=== PATIENT | female | born 1990 | race Hispanic/Latino ===

== ENCOUNTER 2016-06-09 09:56 | Emergency (ER) | payer MEDICAID ==
[2016-06-09 10:50] LABS: Basophils % (Auto) 0.7 % (0.0-1.8); Eosinophils % (Auto) 2.4 % (0.0-4.3); Hematocrit 40.6 % (30.3-42.9); Hemoglobin 13.1 gm/dl (10.1-14.3); Mean Corpuscular HGB Conc 32 % (30-34); Mean Corpuscular Hemoglobin 28 pg (28-32); Mean Corpuscular Volume 86 fl (79-97); Platelet Count 199 K/mm3 (140-440); Red Blood Count 4.74 M/mm3 (3.65-5.03); Red Cell Distribution Width 13.9 % (13.2-15.2); White Blood Count 4.8 K/mm3 (4.5-11.0)
[2016-06-09 11:10] LABS: Alanine Aminotransferase 15 units/L (7-56); Albumin 4.1 g/dL (3.9-5); Albumin/Globulin Ratio 1.2 %; Alkaline Phosphatase 94 units/L (35-129); Anion Gap 18 mmol/L; BUN/Creatinine Ratio 14.28; Bilirubin,Total 0.5 mg/dL (0.1-1.2); Blood Urea Nitrogen 10 mg/dL (7-17); Calcium 8.5 mg/dL (8.4-10.2); Carbon Dioxide 24 mmol/L (22-30); Chloride 102.3 mmol/L (98-107); Glucose 92 mg/dL (65-100); Lipase 24 units/L (13-60); Potassium 4.6 mmol/L (3.6-5.0); Sodium 140 mmol/L (137-145); Total Protein 7.5 g/dL (6.3-8.2)
[2016-06-09 11:34] LABS: Bilirubin,Urine NEG (Negative); Blood,Urine SM (Negative); Ketones,Urine NEG (Negative); Leukocyte Esterase,Urine NEG (Negative); Mucus,Urine FEW /HPF; Nitrite,Urine NEG (Negative); Protein,Urine <15 mg/dL mg/dL (Negative); Urobilinogen,Urine < 2.0 mg/dL (<2.0); WBC,Urine < 1.0 /HPF (0.0-6.0)
[2016-06-09] MEDS ORDERED: TORADOL IM ONE (11:44)
[2016-06-09] MEDS ORDERED: ZOFRAN ODT PO ONE (11:44)
[2016-06-09 12:58] VITALS: BP 100/60
--- NOTE | 2016-06-09 13:14 | Emergency Department Report ---
HPI - General Chief Complaint: Abdominal Pain Time Seen by Provider: 06/09/16 11:12 - HPI HPI: The patient is a 26-year-old female with a history of biliary colic, who presents for evaluation of abdominal pain. The patient reports right upper quadrant abdominal pain since 7 AM this morning, 8/10 in severity, stabbing in quality, radiating to the back, and is exacerbated with eating. She also reports some associated mild nausea. The patient denies fever, chills, night sweats, chest pain, dyspnea, vomiting, diarrhea, blood in the stool, dark tarry stool, dysuria, hematuria, flank pain, genital discharge, inability to pass flatus. ED Past Medical Hx - Past Medical History Hx Hypertension: No Hx Congestive Heart Failure: No Hx Diabetes: No Hx Deep Vein Thrombosis: No Hx GERD: Yes Hx Renal Disease: No Hx Sickle Cell Disease: No Hx Seizures: No Hx Asthma: Yes (albuterol PRN) Hx COPD: No Hx HIV: No Additional medical history: DEVIATED SEPTUM. GALL STONES - Surgical History Past Surgical History?: No - Social History Smoking Status: Never Smoker Substance Use Type: None - Medications Home Medications: Home Medications Medication Instructions Recorded Confirmed Last Taken Type Vit-Fe Fumar-FA [ 1 tab PO QDAY 01/12/15 01/15/15 Unknown History Vitamin] HYDROcodone/APAP 5-325 [[place] 1 each PO Q4HR PRN #20 tablet 01/16/15 Unknown Rx 5/325] Mag Hydrox/Al Hydrox/Simeth 770 ml PO TID 7 Days 04/13/15 Unknown Rx [Maalox Advanced Suspension] ALBUTEROL Inhaler [ProAir HFA 2 puff IH QID PRN #1 inha 05/04/15 Unknown Rx Inhaler] Amoxicillin/K Clav Tab [Augmentin 1 tab PO Q12HR #20 tab 05/04/15 Unknown Rx 875 mg] Cetirizine HCl [ZyrTEC] 10 mg PO DAILY #30 capsule 05/04/15 Unknown Rx Fluticasone [Flonase] 2 spray NS QDAY #1 bottle 05/04/15 Unknown Rx Promethazine /Codeine 5 ml PO Q6H PRN #150 ml 05/04/15 Unknown Rx [Phenergan/Codeine 6.25-10 mg/5 ml] predniSONE [Deltasone] 50 mg PO QDAY #5 tab 09/05/15 Unknown Rx HYDROcodone/APAP 5-325 [[place] 1 each PO Q6HR PRN #14 tablet 06/09/16 Unknown Rx 5/325] Ondansetron [Zofran TAB] 4 mg PO Q8HR PRN #14 tablet 06/09/16 Unknown Rx ED Review of Systems ROS: Stated complaint: GALL BLADDER PAIN Other details as noted in HPI Constitutional: denies: fever ENT: denies: throat or neck pain Respiratory: denies: cough, shortness of breath Cardiovascular: denies: chest pain Endocrine: denies unexplained weight loss or gain Gastrointestinal: reports abdominal pain, nausea Genitourinary: denies: dysuria Musculoskeletal: denies: leg swelling Skin: denies: rash Neurological: denies: headache Hematological/Lymphatic: denies: easy bleeding or easy bruising Psych: denies sadness or hopelessness Physical Exam - Physical Exam Vital Signs: Vital Signs 06/09/16 06/09/16 10:16 11:08 Temperature 98.1 F Pulse Rate 68 Respiratory 16 18 Rate Blood Pressure 116/79 O2 Sat by Pulse 100 98 Oximetry Physical Exam: General: well-nourished, well-developed, morbidly obese Head: Normocephalic, atraumatic Eyes: normal sclera ENT: Mucous membranes are pink and moist Neck: trachea midline, neck supple, No neck stiffness, no cervical adenopathy Respiratory: Breath sounds equal bilaterally, no wheezing, rales, or rhonchi Cardio: S1 and S2 present, no murmurs, rubs, gallops, capillary refill is brisk Abdomen: Normoactive bowel sounds, soft abdomen, RUQ and epigastric tenderness to palpation present, no rigidity, no guarding or rebound tenderness Chest WALL/Back: No tenderness to palpation of the chest wall, no CVA tenderness with percussion Musc: No pitting edema Skin: No rash Neuro: no facial drooping, normal speech Psych: Normal affect ED Course Vital Signs 06/09/16 06/09/16 10:16 11:08 Temperature 98.1 F Pulse Rate 68 Respiratory 16 18 Rate Blood Pressure 116/79 O2 Sat by Pulse 100 98 Oximetry ED Medical Decision Making - Lab Data Result diagrams: 06/09/16 10:38 06/09/16 10:38 - Medical Decision Making The patient was seen and examined by myself. The patient is placed on a shelter monitor and continuous pulse ox. On initial evaluation, the patient was found to be in no distress. Evaluation orders are placed. The patient is given IM dose of Toradol for pain, and Zofran for nausea. Lab results were non- concerning including WBC, hemoglobin, hematocrit, electrolytes, renal function, LFTs, lipase, and negative test. The patient was reevaluated and reported that their symptoms were markedly improved. The patient is stable for discharge with outpatient follow-up. The patient is given follow-up and return instructions. The patient expressed understanding and agreed with the plan. The patient is discharged in stable condition. Critical care attestation.: If time is entered above; I have spent that time in minutes in the direct care of this critically ill patient, excluding procedure time. ED Disposition Clinical Impression: Acute abdominal pain in right upper quadrant Disposition: DISCHARGED TO HOME OR SELFCARE Is pt being admited?: No Does the pt Need Aspirin: No Condition: Stable Instructions: Abdominal Pain (ED), Biliary Colic (ED), Acute Nausea and Vomiting (ED) Referrals: PRIMARY CARE, [Primary Care Provider] - 3-5 Days Time of Disposition: 12:57
== END 2016-06-09 13:14 | disposition home or self-care (01) ==
LOC: ED 09:56
DX: R10.11 Right upper quadrant pain (principal); K21.9 Gastro-esophageal reflux disease without esophagitis; J45.909 Unspecified asthma, uncomplicated
CPT/HCPCS: 36415; 80053; 81001; 83690; 84703; 85025; 96372; 99284; J1885; Q0162

== ENCOUNTER 2016-06-09 18:00 | Emergency (ER) | payer MEDICAID ==
--- NOTE | 2016-06-09 22:47 | Emergency Department Report ---
HPI - General Chief Complaint: Abdominal Pain Time Seen by Provider: 06/09/16 21:43 - HPI HPI: The patient is a 26-year-old female with a history of biliary colic, who presents for evaluation of abdominal pain. The patient was seen here earlier today by Dr. Hernandez for right upper quadrant abdominal pain. Lab results were non-concerning including WBC, hemoglobin, hematocrit, electrolytes, renal function, LFTs, lipase, and negative test therefore she was discharged with outpatient follow up. Now complaining of left upper quadrant pain post lunch and is requesting imaging of her abdomen. She denies any pain at this time. The patient denies fever, chills, night sweats, chest pain, dyspnea, vomiting, diarrhea, blood in the stool, dark tarry stool, dysuria, hematuria, flank pain, genital discharge, inability to pass flatus. ED Past Medical Hx - Past Medical History Previous Medical History?: Yes Hx Hypertension: No Hx Congestive Heart Failure: No Hx Diabetes: No Hx Deep Vein Thrombosis: No Hx GERD: Yes Hx Renal Disease: No Hx Sickle Cell Disease: No Hx Seizures: No Hx Asthma: Yes (albuterol PRN) Hx COPD: No Hx HIV: No Additional medical history: DEVIATED SEPTUM. GALL STONES - Surgical History Past Surgical History?: No - Social History Smoking Status: Never Smoker Substance Use Type: None - Medications Home Medications: Home Medications Medication Instructions Recorded Confirmed Last Taken Type Vit-Fe Fumar-FA [ 1 tab PO QDAY 01/12/15 01/15/15 Unknown History Vitamin] HYDROcodone/APAP 5-325 [[place] 1 each PO Q4HR PRN #20 tablet 01/16/15 Unknown Rx 5/325] Mag Hydrox/Al Hydrox/Simeth 770 ml PO TID 7 Days 04/13/15 Unknown Rx [Maalox Advanced Suspension] ALBUTEROL Inhaler [ProAir HFA 2 puff IH QID PRN #1 inha 05/04/15 Unknown Rx Inhaler] Amoxicillin/K Clav Tab [Augmentin 1 tab PO Q12HR #20 tab 05/04/15 Unknown Rx 875 mg] Cetirizine HCl [ZyrTEC] 10 mg PO DAILY #30 capsule 05/04/15 Unknown Rx Fluticasone [Flonase] 2 spray NS QDAY #1 bottle 12/28/15 Unknown Rx Promethazine /Codeine 5 ml PO Q6H PRN #150 ml 05/04/15 Unknown Rx [Phenergan/Codeine 6.25-10 mg/5 ml] predniSONE [Deltasone] 50 mg PO QDAY #5 tab 09/05/15 Unknown Rx HYDROcodone/APAP 5-325 [[place] 1 each PO Q6HR PRN #14 tablet 06/09/16 Unknown Rx 5/325] Ondansetron [Zofran TAB] 4 mg PO Q8HR PRN #14 tablet 06/09/16 Unknown Rx ED Review of Systems ROS: Stated complaint: STOMACH PAINS Other details as noted in HPI Constitutional: denies: chills, fever, malaise Eyes: denies: eye pain ENT: denies: ear pain, throat pain, congestion Respiratory: denies: cough, shortness of breath, wheezing Cardiovascular: denies: chest pain, palpitations Endocrine: no symptoms reported Gastrointestinal: denies: abdominal pain, nausea, vomiting Musculoskeletal: denies: back pain Neurological: denies: headache, weakness Physical Exam - Physical Exam Vital Signs: Vital Signs 06/09/16 18:42 Temperature 98.8 F Pulse Rate 101 H Respiratory 18 Rate Blood Pressure 120/81 O2 Sat by Pulse 100 Oximetry Physical Exam: GENERAL: The patient is well-developed and well-nourished. Patient is in NAD. HEAD: Normocephalic. Atraumatic. CHEST/LUNGS: Clear to auscultation throughout. HEART/CARDIOVASCULAR: Regular rate and rhythm. ABDOMEN: Abdomen is soft, nontender. Bowel sounds normoactive. No guarding or rebound tenderness. Negative for CVA tenderness bilaterally. EXTREMITIES: Peripheral pulses intact. Capillary refill less than 2 seconds. NEURO: Alert and oriented x 3. Normal gait. ED Course Vital Signs 06/09/16 18:42 Temperature 98.8 F Pulse Rate 101 H Respiratory 18 Rate Blood Pressure 120/81 O2 Sat by Pulse 100 Oximetry ED Medical Decision Making - Lab Data Vital Signs 06/09/16 18:42 Temperature 98.8 F Pulse Rate 101 H Respiratory 18 Rate Blood Pressure 120/81 O2 Sat by Pulse 100 Oximetry - Medical Decision Making 26-year-old female presents today with left upper quadrant pain post lunch. Patient denies any pain at this time. Patient was seen here earlier today for right upper quadrant pain and was sent home with outpatient follow-up. Lab results earlier today were non-concerning including WBC, hemoglobin, hematocrit , electrolytes, renal function, LFTs, lipase, and negative test. Explained to patient that there is no clinical reason to order a CT scan at this time. Patient expressed understanding. Consulted with Dr. Hernandez. A referral for a surgeon has been provided. Patient is in no acute distress at this time. She will be discharged home and is encouraged to follow up with a primary care provider. She is encouraged to return to the emergency room for any worsening symptoms. Critical care attestation.: If time is entered above; I have spent that time in minutes in the direct care of this critically ill patient, excluding procedure time. ED Disposition Clinical Impression: Abdominal pain Qualifiers: Abdominal location: left upper quadrant Qualified Code(s): R10.12 - Left upper quadrant pain Disposition: DISCHARGED TO HOME OR SELFCARE Is pt being admited?: No Does the pt Need Aspirin: No Condition: Stable Instructions: Abdominal Pain (ED), Biliary Colic (ED) Additional Instructions: Follow-up with primary care provider and surgeon. Return to the emergency department if symptoms worsen. Referrals: KIYA DAN MD [Primary Care Provider] - 3-5 Days ELIDIA CUELLAR MD [Staff Physician] - 3-5 Days LONDON LUNA MD [Staff Physician] - 3-5 Days Forms: Work/School Release Form(ED) Time of Disposition: 22:53
[2016-06-09 23:09] VITALS: BP 112/72
== END 2016-06-09 23:07 | disposition home or self-care (01) ==
LOC: ED 18:00
DX: R10.12 Left upper quadrant pain (principal); K21.9 Gastro-esophageal reflux disease without esophagitis; J45.909 Unspecified asthma, uncomplicated
CPT/HCPCS: 99282

== ENCOUNTER 2018-06-07 21:50 | Outpatient (CLI) | payer MEDICAID ==
[2018-06-07 23:06] VITALS: BP 121/78
[2018-06-07] MEDS ORDERED: LACTATED RINGERS 1,000 ML IV ONE (23:39)
[2018-06-08] MEDS ORDERED: DIFLUCAN PO ONE (00:08)
[2018-06-08 00:10] LABS: Bacteria,Urine 1+ /HPF (Negative); Bilirubin,Urine NEG (Negative); Blood,Urine NEG (Negative); Color,Urine Yellow (Yellow); Mucus,Urine FEW /HPF; Protein,Urine <15 mg/dL mg/dL (Negative)
== END 2018-06-08 01:39 | disposition home or self-care (01) ==
LOC: TRG 21:50
PROVIDERS: ATTEND Obstetrics & Gynecology
DX: O62.8 Other abnormalities of forces of labor (principal); O99.513 Diseases of the respiratory system complicating pregnancy, third trimester; J45.909 Unspecified asthma, uncomplicated; Z3A.35 35 weeks gestation of pregnancy
CPT/HCPCS: 59025; 81001; 96360; J7120

== ENCOUNTER 2018-06-16 19:24 | Outpatient (CLI) | payer MEDICAID | END 2018-06-16 20:47 | disposition home or self-care (01) | LOC: TRG 19:24 ==

== ENCOUNTER 2018-06-18 03:57 | Outpatient (CLI) | payer MEDICAID ==
[2018-06-18 04:33] VITALS: BP 103/69
[2018-06-18] MEDS ORDERED: LACTATED RINGERS 1,000 ML ONE (07:24)
[2018-06-18] MEDS ORDERED: LACTATED RINGERS 1,000 ML IV SCH (08:00)
== END 2018-06-18 08:19 | disposition home or self-care (01) ==
LOC: TRG 03:57
PROVIDERS: ATTEND Obstetrics & Gynecology
DX: O62.9 Abnormality of forces of labor, unspecified (principal); Z3A.37 37 weeks gestation of pregnancy
CPT/HCPCS: 96360; 99212; G0463; J7120

== ENCOUNTER 2020-02-22 00:42 | Emergency (ER) | payer SELFPAY ==
[2020-02-22 02:35] VITALS: BP 135/75
== END 2020-02-22 07:00 | disposition left against medical advice (07) ==
LOC: ED 00:42
DX: H92.01 Otalgia, right ear (principal); Z53.21 Procedure and treatment not carried out due to patient leaving prior to being seen by health care provider